=== PATIENT | female | born 1950 | race Caucasian/White ===

== ENCOUNTER 2022-04-20 21:22 | Emergency (ER) | payer OTHER ==
[~2022-04-20] VITALS: Ht 149.9 cm; Wt 68.0 kg
[2022-04-20 21:27] VITALS: BP_SYST 148
--- NOTE | 2022-04-20 21:35 | NUR ---
PT HERE C/O RT FLANK PAIN WITH URINARY FREQUENCY AND PRESSURE TO BLADDER WHEN URINATING X2 DAYS. PT STATED THAT HER ANA GROIN IS PAINFUL WELL, PER PT SHE ALSO HAVE SOME CHILLS AT HOME, DENIES FEVER, DENIES N/V/D. PMH;HTN,ASTHMA,DEPRESSION PT AAOX4, NO SOB NOTED. PT ASSISTED TO RM4 AMBULATED WITH STEADY GAIT.
--- NOTE | 2022-04-20 21:41 | NUR ---
PATIENT IN ROOM 4, WAITING FOR EVAL. GIVING URINE SAMPLE AT THIS TIME.
--- NOTE | 2022-04-20 21:49 | NUR ---
URINE SENT TO LAB.
[2022-04-20 22:22] LABS: BASOPHILS # (AUTO) 0.1 K/uL (0.0-0.2); EOSINOPHILS # (AUTO) 0.1 K/uL (0.0-0.4); LYMPHOCYTES # (AUTO) 1.6 K/uL (1.0-5.5); RED CELL DISTRIBUTION WIDTH 14.5 % (9.0-15.0)
[2022-04-20 22:34] LABS: BASOPHILS % (AUTO) 0.7 % (0.0-2.0); EOSINOPHILS % (AUTO) 0.7 % (0.0-4.0); HEMATOCRIT 44.1 % (36-48); HEMOGLOBIN 14.8 g/dL (12.0-16.0); LYMPHOCYTES % (AUTO) 13.5 % (20.5-51.5); MEAN CORPUSCULAR HEMOGLOBIN 29 pg (27-31); MEAN CORPUSCULAR HGB CONC 34 % (32-36); MEAN CORPUSCULAR VOLUME 87 fL (79.0-98.0); MONOCYTES # (AUTO) 0.7 K/uL (0.0-1.0); MONOCYTES % (AUTO) 6.2 % (1.7-9.3); NEUTROPHILS # (AUTO) 9.4 K/uL (1.8-7.7); NEUTROPHILS % (AUTO) 78.9 % (40.0-70.0); PLATELET COUNT (AUTO) 229 K/uL (130-430); RED BLOOD CELL COUNT(AUTO) 5.07 MIL/uL (4.2-6.2); WHITE BLOOD COUNT (AUTO) 11.9 K/uL (4.8-10.8)
[2022-04-20 22:41] LABS: CALCIUM 9.4 mg/dL (8.4-11.0); CREATININE 1.06 mg/dL (0.55-1.30); POTASSIUM 3.5 mmol/L (3.5-5.1)
[2022-04-20 22:47] LABS: TOTAL BILIRUBIN 0.6 mg/dL (0.0-1.0)
[2022-04-20 23:08] LABS: BILIRUBIN,URINE NEGATIVE (NEGATIVE); COLOR,URINE YELLOW (YELLOW); GLUCOSE,URINE NEGATIVE (NEGATIVE); KETONES,URINE NEGATIVE (NEGATIVE); LEUKOCYTE ESTERASE ,URINE 2+ (NEGATIVE); NITRITE, URINE NEGATIVE (NEGATIVE); PROTEIN URINE NEGATIVE (NEGATIVE); UROBILINOGEN,URINE 0.2 (0.2-1.0)
[2022-04-20 23:27] LABS: BLOOD, URINE TRACE (NEGATIVE)
[2022-04-20 23:28] LABS: CLARITY/URINE HAZY (CLEAR)
[2022-04-20 23:33] LABS: BACTERIA,URINE FEW /HPF (None Seen); MUCUS,URINE None Seen /LPF (None Seen); RBC,URINE 0-3 /HPF (0-3)
[2022-04-21] MEDS ORDERED: LIDOCAINE 1%, 20 ML MDV 20 ML ONE (00:13)
[2022-04-21] MEDS ORDERED: cefTRIAXone 1 GM VIAL IM ONE (00:15)
[2022-04-21] MEDS ORDERED: NITR-85 PO (00:18)
[2022-04-21] MEDS ORDERED: ONDA-8 TL (00:18)
--- NOTE | 2022-04-21 00:31 | NUR ---
Patient given written and verbal discharge instructions and verbalizes understanding. ER MD discussed with patient the results and treatment provided. Patient in stable condition. ID arm band removed. IV catheter removed intact and dressing applied, no active bleeding. Rx of MACROBID given. Patient educated on pain management and to follow up with PMD. Pain Scale . Opportunity for questions provided and answered. Medication side effect fact sheet provided.
== END 2022-04-21 00:20 | disposition home or self-care (01) ==
LOC: SED 21:22
DX: N30.00 Acute cystitis without hematuria (principal); R10.9 Unspecified abdominal pain; R35.0 Frequency of micturition; R39.15 Urgency of urination; Z88.1 Allergy status to other antibiotic agents; Z88.6 Allergy status to analgesic agent; Z79.899 Other long term (current) drug therapy
CPT/HCPCS: 99283; 80053; 81000; 85025; 87086; 36415; 83605; 96372; J0696; J2001